=== PATIENT | female | born 1945 | race Caucasian/White ===

== ENCOUNTER 2020-10-24 17:32 | Emergency (ER) | payer MEDICARE, OTHER ==
[~2020-10-24 17:32] MED LIST: ASPIRIN325 MG PO; BAL B-1001 EACH PO; BREO ELLIPTA 11 EACH INH; CERTAGEN1 EACH PO; CITRACAL + D31 EACH PO; CLARITIN10 MG PO; CO Q-10100 MG PO; COLACE100 MG PO; DUONEB 2.5-0.5M1 AMP INH; FERROUS SULFAT325 M2 PO; MAGNESIUM MALATE1 GM PO; MEDROL 4MG DOSEP4 MG PO; MOBIC7.5 MG PO; MUCINEX 600MG600 MG PO; NORCO 5-325 TA1 EACH PO; PEPCID AC20 MG PO; PERCOCET 5-3251 EACH PO; PRAVACHOL40 MG PO; PRILOSEC20 MG PO; PROMETHAZINE/C120 ML PO; SENOKOT-S TABL1 EACH PO; TENORMIN25 MG PO; VENTOLIN HFA IN18 GM INH; VITAMIN C500 M1 PO; VITAMIN D2000 UNI1 PO; ZINC50 M1 PO; ZOFRAN4 MG PO; ZPAK PO
[2020-10-24 18:48] LABS: BASOPHIL 0.4 % (0-2); EOSINOPHIL 1.2 % (0-7); HCT 42.8 % (37.0-47.0); HGB 14.1 g/dl (12.5-16.0); LYMPHOCYTE 14.6 % (15-48); MCH 29.9 pg (25.0-31.0); MCHC 32.9 g/dL (32.0-36.0); MCV 90.7 fL (78.0-100.0); MONOCYTE 8.9 % (0-12); MPV 9.5 fL (6.0-9.5); NEUTROPHIL 74.5 % (41-80); NRBC 0; PLT 165 K/uL (150-400); RBC 4.72 M/uL (4.20-5.40); RDW 12.9 % (11.5-14.0); WBC 8.5 K/uL (4.0-10.5)
[2020-10-24 19:15] LABS: BUN/CREAT RATIO (CALC) 15.2 RATIO; CREATININE 0.79 mg/dL (0.51-0.95)
[2020-10-24 19:36] LABS: ALBUMIN 3.7 g/dL (3.4-5.0); BILIRUBIN - DIRECT 0.1 mg/dL (0.00-0.20); BILIRUBIN - TOTAL 0.5 mg/dL (0.2-1.0); GLOBULIN (CALCULATION) 3.5 g/dL; TOTAL PROTEIN 7.2 g/dL (6.4-8.2)
[2020-10-24 19:36] LABS: BILIRUBIN NEGATIVE (NEGATIVE); BLOOD NEGATIVE Ery/uL (NEGATIVE); CLARITY CLEAR (CLEAR); COLOR YELLOW (YELLOW); GLUCOSE (U) NORMAL (NORMAL); LEUKOCYTES 1+ Leu/uL (NEGATIVE); NITRITE NEGATIVE (NEGATIVE); PROTEIN NEGATIVE (NEGATIVE); UROBILINOGEN 0.2 mg/dL (0.2-1.0)
[2020-10-24 19:42] LABS: AMORPHOUS URATES CRYSTALS TRACE; BACTERIA TRACE; MUCOUS MODERATE
== END 2020-10-24 20:55 | disposition home or self-care (01) ==
LOC: FER 17:32
PROVIDERS: Emergency Medicine Emergency Medical Services; Internal Medicine
DX: M25.50 Pain in unspecified joint (principal); K52.1 Toxic gastroenteritis and colitis; T50.B95A Adverse effect of other viral vaccines, initial encounter; I45.10 Unspecified right bundle-branch block; K21.9 Gastro-esophageal reflux disease without esophagitis; J45.909 Unspecified asthma, uncomplicated; Z88.0 Allergy status to penicillin; Z20.822 Contact with and (suspected) exposure to COVID-19
CPT/HCPCS: 36415; 74022; 80048; 80076; 81001; 83605; 84145; 84484; 85025; 86140; 93005; J7030; U0002

== ENCOUNTER → 2022-02-02 | Emergency (ER) | payer MEDICARE, OTHER | END | disposition home or self-care (01) | LOC: FER 13:05 | DX: S89.92XA Unspecified injury of left lower leg, initial encounter (principal); W22.8XXA Striking against or struck by other objects, initial encounter; Z53.21 Procedure and treatment not carried out due to patient leaving prior to being seen by health care provider ==